=== PATIENT | male | born 1990 | race Caucasian/White ===

== ENCOUNTER 2023-08-05 18:36 | Emergency (ER) | payer BC, SELFPAY ==
--- NOTE | ~2023-08-05 | XR_ITS ---
Clinical Indication: Chest tightness PA and lateral views of the chest: Comparison: None Findings: The lungs are clear, without evidence of focal consolidation or pleural effusion. Cardiome diastinal silhouette is within normal limits. Bones and soft tissues are unremarkable. Impression: Normal chest. Reviewed, dictated and finalized at location . COATER Impression: Normal chest.
[2023-08-05 18:39] VITALS: BP 142/94; PULSE 106; RESP 18; TEMP 36.3; O2SAT 100
--- NOTE | 2023-08-05 22:18 | ECG_ITS ---
Measurements Intervals [place] Rate: 63 P: 45 LA: 113 QRS: 51 QRSD: 93 T: 43 QT: 401 QTc: 411 Interpretive Statements SINUS RHYTHM WITH SHORT LA INTERVAL EARLY REPOLARIZATION [ST ELEVATION WITH NORMALLY INFLECTED T-WAVE] NORMAL ECG NO PREVIOUS ECG AVAILABLE FOR COMPARISON Electronically Signed On 08-06-2023 7:25:23 COAT OPERATOR INSULATOR by Ralph Wooten M.D.
--- NOTE | 2023-08-05 22:22 | PC.NURSE ---
Patient states he is feeling chest pressure .
[2023-08-05 23:19] VITALS: BP 144/86; PULSE 67; RESP 13; TEMP 36.6; O2SAT 100
[2023-08-06] MEDS: SODIUM CHLORIDE 0.9% IV 1,000 ML 999 ML IV CONT
[2023-08-06] MEDS: LORazepam INJ (*CRX) 2 MG/ML VIAL 0.5 MG IV PUSH (00:02)
--- NOTE | 2023-08-06 00:05 | ECG_ITS ---
Measurements Intervals [place] Rate: 56 P: 56 RI: 110 QRS: 58 QRSD: 105 T: 44 QT: 444 QTc: 430 Interpretive Statements SINUS BRADYCARDIA WITH SHORT RI INTERVAL EARLY REPOLARIZATION NORMAL ECG COMPARED TO ECG 08/05/2023 22:27:28 NO SIGNIFICANT CHANGE Electronically Signed On 08-06-2023 7:26:27 MIXER ATTENDANT by Ralph Wooten M.D.
--- NOTE | 2023-08-06 00:08 | PC.NURSE ---
When establishing an IV and obtained blood samples the guest in the room became lightheaded (their own statement) and went to sit down on the chair. After sitting down for apporximatley one minute the patient seemed to have had an episode of LOC and had snoring respirations. The patient then regained consciousness and presented A&OX4. Vitals were obtained and are as followed: blood pressure 83/40, temperature 96.9 temporally, SPO2 100% room air, 16RR, and pulse was 48 bpm. Patient was then taken to room 1 to be checked in and checked out by nursing staff.
[2023-08-06 00:11] LABS: Basophils Percent Auto 0.2 % (0.2-1.2); Eosinophils Absolute Auto 0.1 K/mm3 (0-0.3); Eosinophils Percent Auto 0.7 % (0-4.4); Hemoglobin 16.7 g/dL (14.0-18.0); Immature Granulocyte Absolute 0.03 K/mm3 (0.00-0.031); Immature Granulocyte Percent A 0.3 % (0-0.5); Lymphocytes Absolute Auto 1.83 K/mm3 (0.9-3.2); Lymphocytes Percent Auto 20.5 % (18.3-44.2); Mean Corpuscular HGB Conc 34.8 g/dl (32-36); Mean Corpuscular Hemoglobin 31.3 pg (26-34); Mean Corpuscular Volume 90.1 fl (80-100); Mean Platelet Volume 9.5 fl (7.4-10.4); Monocytes Absolute Auto 0.5 K/mm3 (0.1-0.6); Monocytes Percent Auto 5.6 % (2.6-8.5); Neutrophils Absolute Auto 6.5 K/mm3 (1.3-6.7); Neutrophils Percent Auto 72.7 % (45.5-73.1); Platelet Count Result 310 k/mm3 (150-375); Red Blood Count 5.33 M/mm3 (4.6-6.20); Red Cell Distribution Width 12.6 % (11.5-14.5); White Blood Count 8.9 K/mm3 (4.5-10.0)
[2023-08-06 00:30] LABS: Alanine Aminotransferase 47 U/L (6-50); Albumin Level 4.8 g/dL (3.5-5.1); Alkaline Phosphatase 82 U/L (38-126); Anion Gap 9 mmol/L (8-16); Aspartate Amino Transferase 37 U/L (17-59); Bilirubin,Total 1.6 mg/dL (0.2-1.3); Blood Urea Nitrogen 14 mg/dL (9-20); Calcium 10.1 mg/dL (8.4-10.2); Carbon Dioxide 28 mmol/L (22-30); Chloride 103 mmol/L (98-107); Estimated CRCL calculation 113 ml/min; Estimated Glomerular Filt Rate > 60; Glucose 102 mg/dL (65-110); Lipase 217 U/L (23-300); Potassium 3.5 mmol/L (3.4-5.0); Sodium 140 mmol/L (137-145)
[2023-08-06 00:44] LABS: Troponin I < 0.012 ng/mL (0.000-0.034)
[2023-08-06 00:47] LABS: Appearance Urine Clear (Clear); Bilirubin Urine Negative (Negative); Blood Urine Negative (Negative); Color Urine Yellow (Yellow); Glucose Urine UA Negative (Negative); Ketones Urine 1+ mg/dL (Negative); Leukocyte Esterase Ur Negative LEU/UL (Negative); Nitrate Urine Negative (Negative); Protein Urine Negative (Negative); Specific Grav Ur 1.019 (1.001-1.035)
[2023-08-06 00:53] VITALS: BP 141/93; PULSE 67; RESP 16; O2SAT 96
[2023-08-06 01:01] LABS: Add Urine Microscopic? NO
--- NOTE | 2023-08-06 01:20 | ED.RECABL ---
HPI - Recheck/Abnormal Lab/Rx General Chief Complaint: Recheck/Abnormal Lab/Rx Stated Complaint: High BP, tachy Time Seen by Provider: 08/05/23 22:11 History of Present Illness HPI narrative: 32-year-old male presents to the emergency department lightheadedness, anxiety and chest pressure. Patient states around 5:00 p.m., he began feeling ?weird?. When asked what ?weird he said he felt anxious. States approximately 1-2 hours later he was bending over to clean out the cat litter boxes when he sat up and felt lightheaded. States this lasted for few minutes and then resolved. States he has intermittently felt lightheaded when going from sitting to standing position. Denies syncope. States around that same time he began developing anterior chest pressure into his neck. Denies aggravating or alleviating factors. Also states he had tingling in his bilateral hands which has since resolved. Denies shortness of breath, radiation to his arm or back. No personal or family cardiac history. No risk factors for DVT or PE. Denies abdominal pain, nausea vomiting diarrhea, fever, cough or congestion. Related Data Allergies Allergy/AdvReac Type Severity Reaction Status Date / Time No Known Allergies Allergy Verified 08/05/23 18:41 Review of Systems Review of Systems: CONSTITUTIONAL: Denies fever, chills, or sweats. EYES: Denies visual changes, redness, or discharge. ENT: Denies rhinorrhea, congestion, sore throat, or otalgia. CARDIOVASCULAR: See HPI RESPIRATORY: Denies cough or dyspnea. GASTROINTESTINAL: Denies abdominal pain, nausea, vomiting, or diarrhea. GENITOURINARY: Denies dysuria or hematuria. SKIN: Denies rash or itching. MUSCULOSKELETAL: Denies back pain, joint pain, or myalgia. NEUROLOGIC: See HPI PSYCHIATRIC: Denies anxiety or depression. Exam Narrative: GENERAL: Well-appearing, well-nourished, and in no acute distress. Patient resting comfortably in exam bed. HEAD: Normocephalic, atraumatic. EYES: PERRLA and EOMI. ENT: Nares clear, no rhinorrhea or epistaxis. Mucous membranes moist. NECK: Supple. CHEST: Clear to auscultation. No respiratory distress. HEART: Regular rate and rhythm. No murmur heard. Normal peripheral pulses. ABDOMEN: Soft, nontender, nondistended, normal active bowel sounds. EXTREMITIES: Normal range of motion. No edema. Negative Homans bilaterally. SKIN: Warm, dry, no rash. NEURO: No focal deficits. Alert and oriented x3 Course Vital Signs Vital signs: Vital Signs Temperature 97.3 F L 08/05/23 18:39 Pulse Rate 106 H 08/05/23 18:39 Respiratory Rate 18 08/05/23 18:39 Blood Pressure 142/94 H 08/05/23 18:39 Pulse Oximetry 100 08/05/23 18:39 Oxygen Delivery Room Air 08/05/23 18:39 Temperature 98 F 08/05/23 23:19 Pulse Rate 63 08/06/23 02:32 Respiratory Rate 15 08/06/23 02:32 Blood Pressure 131/81 08/06/23 02:32 Pulse Oximetry 97 08/06/23 02:32 Oxygen Delivery Room Air 08/05/23 18:39 MDM - Recheck/Abnormal Lab/Rx MDM Narrative Medical decision making narrative: 32-year-old male presenting emergency department for lightheadedness, anxiety and chest tightness. See HPI for further history. Triage vital significant for elevated blood pressure mild tachycardia 106 which has since resolved. HR now 63. He is nontoxic and well appearing on exam. Chemistries are unremarkable. UA with 1+ ketones, otherwise normal. Lipase normal. Chest x-ray shows no acute cardiopulmonary abnormality. EKG significant for sinus rhythm with a short VT interval of 113, early repolarization, no ischemic changes. Troponin undetectable x2. Labs and imaging discussed with the patient. Heart score 2. Aruna low suspicion for PE given his tachycardia quickly resolved in the ED, no hypoxia, pain is not pleuritic, no risk factors. He received IV fluids and Ativan with improvement. He is ambulatory in the ED without symptoms. Suspect anxiety. Will discharge home with PCP follow
[2023-08-06 02:32] VITALS: BP 131/81; PULSE 63; RESP 15; O2SAT 97
--- NOTE | 2023-08-06 02:51 | ECG_ITS ---
Measurements Intervals [place] Rate: 56 P: 33 ID: 116 QRS: 56 QRSD: 103 T: 39 QT: 434 QTc: 420 Interpretive Statements SINUS BRADYCARDIA WITH SHORT ID INTERVAL EARLY REPOLARIZATION [ST ELEVATION WITH NORMALLY INFLECTED T-WAVE] NORMAL ECG COMPARED TO ECG 08/06/2023 00:13:29 NO SIGNIFICANT CHANGES Electronically Signed On 08-06-2023 7:29:51 CHIEF RADIATION THERAPIST by Ralph Wooten M.D.
[2023-08-06 03:25] LABS: Troponin I < 0.012 ng/mL (0.000-0.034)
[2023-08-06 03:40] VITALS: BP 147/98; PULSE 65; RESP 13; TEMP 36.7; O2SAT 96
== END 2023-08-06 03:41 | disposition home or self-care (01) ==
PROVIDERS: Emergency Provider Physician Assistant; PCP Nurse Practitioner
DX: R07.89 Other chest pain (principal)
CPT/HCPCS: 36415; 71046; 80053; 81003; 83690; 84484; 85025; 93005; 96361; 96374; 99284; J2060; J7030